=== PATIENT | female | born 1950 | race Caucasian/White ===

== ENCOUNTER → 2017-08-18 | Outpatient (CLI) | payer MEDICARE ==
[~2017-08-18] MED LIST: OMNIPAQUE 350 MG/ML, 100ML BOTTLE ONE
== END | disposition home or self-care (01) ==
LOC: CFH 11:11
PROVIDERS: ATTEND Physician Assistant Medical
DX: K86.2 Cyst of pancreas (principal); K85.10 Biliary acute pancreatitis without necrosis or infection; Z90.49 Acquired absence of other specified parts of digestive tract
CPT/HCPCS: 74178; 82565; Q9967

== ENCOUNTER → 2017-11-09 | Outpatient (CLI) | payer MEDICARE ==
[~2017-11-09] MED LIST changes: +CALCIUM PO; +LEVO50TA5 PO; -OMNIPAQUE 350 MG/ML, 100ML BOTTLE ONE; +PANT40TA5 PO; +SENN1TAB67 PO; +VITAMIN D PO
[2017-11-09 13:16] LABS: BASOPHILS # (AUTO) 0.05 x10^3/uL (0-0.1); BASOPHILS % (AUTO) 1 % (0-1); EOSINOPHILS # (AUTO) 0.23 x10^3/uL (0-0.4); EOSINOPHILS % (AUTO) 3 % (1-7); LYMPHOCYTES # (AUTO) 2.87 x10^3/uL (1-3.4); LYMPHOCYTES % (AUTO) 38 % (22-44); MD NO; MEAN CORPUSCULAR HEMOGLOBIN 30.8 pg (27.0-34.8); MEAN CORPUSCULAR HGB CONC 33.7 g/dL (32.4-35.8); MEAN CORPUSCULAR VOLUME 91.3 fL (80-100); MEAN PLATELET VOLUME 8.9 fL (7.4-10.4); MONOCYTES # (AUTO) 0.55 x10^3/uL (0.2-0.8); MONOCYTES % (AUTO) 7 % (2-9); NEUTROPHILS # (AUTO) 3.79 x10^3/uL (1.8-6.8); NEUTROPHILS % (AUTO) 51 % (42-75); PLATELET COUNT 323 x10^3/uL (130-400); RED BLOOD COUNT 4.63 x10^6/uL (3.82-5.3); RED CELL DISTRIBUTION WIDTH 13.9 % (9.6-15.2)
[2017-11-09 13:27] LABS: ANION GAP 7 mmol/L (5-15); CALCIUM 8.8 mg/dL (8.5-10.1); CHLORIDE 112 mmol/L (98-107)
[2017-11-09 13:29] LABS: CREATININE 0.71 mg/dL (0.55-1.02)
[2017-11-09 13:37] LABS: CULTURE INDICATED? YES; MICROSCOPIC INDICATED
== END | disposition home or self-care (01) ==
LOC: STAR 12:04
PROVIDERS: ATTEND Orthopaedic Surgery
DX: Z01.818 Encounter for other preprocedural examination (principal); M17.12 Unilateral primary osteoarthritis, left knee; R82.99 Other abnormal findings in urine
CPT/HCPCS: 36415; 80048; 81001; 85025; 87081; 87086; 87106; 87147; 93005

== ENCOUNTER 2017-11-13 06:00 | Inpatient (IN) | payer MEDICARE ==
[~2017-11-13] VITALS: Ht 154.9 cm; Wt 79.5 kg
[~2017-11-13 06:00] MED LIST changes: -SENN1TAB67 PO
[2017-11-13] MEDS ORDERED: LACTATED RINGERS 1,000 ML IV SCH (07:07)
[2017-11-13] MEDS ORDERED: SENN1TAB67 PO (07:19)
[2017-11-13] MEDS ORDERED: GABAPENTIN 300 MG CAPSULE PO ONE (08:00)
[2017-11-13] MEDS ORDERED: OXYcodone IR 5MG TABLET PO ONE (08:00)
[2017-11-13] MEDS ORDERED: LORazepam 2 MG/ML, 1ML IVPush ONE (08:00)
[2017-11-13] MEDS ORDERED: METOCLOPRAMIDE 5 MG/ML, 2ML IVPush ONE (08:00)
[2017-11-13] MEDS ORDERED: TRANEXAMIC ACID 100 MG/ML, 10ML ONE (08:52)
[2017-11-13] MEDS ORDERED: ROPIvacaine/PF 0.2%, 20 ML ONE (08:52)
[2017-11-13] MEDS ORDERED: KETOROLAC 60 MG/2 ML ONE (08:52)
[2017-11-13] MEDS ORDERED: SODIUM CHLORIDE 0.9% 100 ML ONE (08:52)
[2017-11-13] MEDS ORDERED: EPINEPHRINE 1 MG/ML, 1ML ONE (08:52)
[2017-11-13] MEDS ORDERED: BUPIVACAINE/PF 0.5% ONE (09:33)
[2017-11-13] MEDS ORDERED: CEFAZOLIN 1,000 MG ONE (09:33)
[2017-11-13] MEDS ORDERED: PROPOFOL 10 MG/ML, 20ML ONE (09:33)
[2017-11-13] MEDS ORDERED: ONDANSETRON 2MG/ML, 2ML ONE (09:33)
[2017-11-13] MEDS ORDERED: DEXAMETHASONE 4 MG/ML, 5ML ONE (09:33)
[2017-11-13] MEDS ORDERED: MIDAZOLAM 1 MG/ML, 2ML ONE (10:17)
[2017-11-13] MEDS ORDERED: FENTANYL PF 250 MCG/5ML ONE (10:17)
[2017-11-13] MEDS ORDERED: OXYcodone 5 MG/5 ML ORAL.SOL UDC PO PRN (10:30)
[2017-11-13] MEDS ORDERED: HYDROmorphone 1 MG/ML, 1ML IV PRN ×2 (10:30→11:30)
[2017-11-13] MEDS ORDERED: PROMETHAZINE 12.5 MG SUPP PR PRN ×2 (10:30→11:30)
[2017-11-13] MEDS ORDERED: ONDANSETRON 2MG/ML, 2ML IVPush PRN (10:30)
[2017-11-13] MEDS ORDERED: LABETALOL 5MG/ML, 20ML IV PRN (10:30)
[2017-11-13] MEDS ORDERED: FENTANYL PF 100 MCG/2ML ONE (10:58)
[2017-11-13] MEDS: FENTANYL PF 100 MCG/2ML IV PRN ×2 (11:10→11:25)
[2017-11-13] MEDS ORDERED: DIPHENHYDRAMINE 25 MG CAPSULE PO PRN (11:30)
[2017-11-13] MEDS: OXYcodone IR 5MG TABLET PO SCH ×3 (11:30→19:30)
[2017-11-13] MEDS ORDERED: PROMETHAZINE 25 MG/ML, 1ML IM PRN (11:30)
[2017-11-13] MEDS ORDERED: ALUMINUM/MAG/SIMETHICONE 30 ML UDC PO PRN (11:30)
[2017-11-13] MEDS ORDERED: ZOLPIDEM 5MG TABLET PO PRN (11:30)
[2017-11-13] MEDS ORDERED: HYDROcodone/APAP 10/325 MG TABLET PO PRN (11:30)
[2017-11-13] MEDS ORDERED: ONDANSETRON 4 MG TABLET PO PRN (11:30)
[2017-11-13] MEDS ORDERED: DIAZEPAM 5 MG TABLET PO PRN (11:30)
[2017-11-13] MEDS ORDERED: OXYcodone IR 5MG TABLET PO PRN (11:30)
[2017-11-13] MEDS ORDERED: SENNA/DOCUSATE TABLET PO PRN (11:30)
[2017-11-13] MEDS ORDERED: ONDANSETRON 2MG/ML, 2ML IV PRN (11:30)
[2017-11-13] MEDS ORDERED: MAGNESIUM HYDROXIDE 8%, 30ML UDC PO PRN (11:30)
[2017-11-13] MEDS ORDERED: BISACODYL 10 MG SUPP PR PRN (11:30)
[2017-11-13] MEDS ORDERED: KETOROLAC 30 MG/1 ML IV SCH (11:30)
[2017-11-13] MEDS ORDERED: TRANEXAMIC ACID 1,000 MG in SODIUM CHLORIDE 0.9% 100 ML IVPB ONE (11:45)
[2017-11-13] MEDS ORDERED: OXYcodone 5 MG/5 ML ORAL.SOL UDC ONE (11:57)
[2017-11-13] MEDS ORDERED: MEPERIDINE/PF 25MG/0.5ML ONE (12:15)
[2017-11-13] MEDS ORDERED: MEPERIDINE/PF 25MG/0.5ML IVPush PRN (12:30)
[2017-11-13 14:00] VITALS: BP 98/57
[2017-11-13] MEDS: D5%-0.45% NACL 1,000 ML IV SCH ×2 (14:00→17:51)
[2017-11-13] MEDS: ACETAMINOPHEN 650 MG/20.3 ML UDC PO SCH ×3 (14:00→23:30)
[2017-11-13] MEDS: CEFAZOLIN PMX 2GM/50ML 50 ML IVPB SCH (18:26)
[2017-11-13] MEDS: ASPIRIN 81 MG TABLET EC PO SCH (18:26)
[2017-11-13 18:42] VITALS: BP 114/68
[2017-11-13 20:36] VITALS: BP 114/68
[2017-11-13] MEDS: DOCUSATE 100 MG CAPSULE PO SCH (21:27)
[2017-11-14] MEDS: D5%-0.45% NACL 1,000 ML IV SCH ×4 (00:31→19:39)
[2017-11-14 00:35] VITALS: BP 105/61
[2017-11-14] MEDS: OXYcodone IR 5MG TABLET PO SCH ×7 (00:40→23:30)
[2017-11-14] MEDS: CEFAZOLIN PMX 2GM/50ML 50 ML IVPB SCH (00:43)
[2017-11-14 03:10] VITALS: BP 119/76
[2017-11-14] MEDS: ACETAMINOPHEN 650 MG/20.3 ML UDC PO SCH ×4 (05:28→23:45)
[2017-11-14] MEDS ORDERED: DEXAMETHASONE 4 MG/ML, 1ML IVPush SCH (06:00)
[2017-11-14] MEDS: LEVOTHYROXINE 50 MCG TABLET PO SCH (06:35)
[2017-11-14] MEDS: ASPIRIN 81 MG TABLET EC PO SCH ×2 (06:37→17:16)
[2017-11-14] MEDS: MULTIVITAMINS/MINERALS TABLET PO SCH (07:44)
[2017-11-14] MEDS: PANTOPROZOLE 40MG TABLET PO SCH (07:45)
[2017-11-14] MEDS: DOCUSATE 100 MG CAPSULE PO SCH ×2 (07:45→19:39)
[2017-11-14 08:04] VITALS: BP 116/54
[2017-11-14] MEDS: TAMSULOSIN 0.4 MG CAP.ER.24H PO SCH (11:34)
[2017-11-14] MEDS: KETOROLAC 30 MG/1 ML IV SCH ×3 (11:36→23:44)
[2017-11-14 13:33] VITALS: BP 93/61
[2017-11-14 19:40] VITALS: BP 97/63
[2017-11-15] MEDS: D5%-0.45% NACL 1,000 ML IV SCH ×2 (01:44→08:48)
[2017-11-15 01:46] VITALS: BP 96/64
[2017-11-15] MEDS: OXYcodone IR 5MG TABLET PO SCH ×3 (02:22→11:17)
[2017-11-15] MEDS: KETOROLAC 30 MG/1 ML IV SCH ×2 (05:58→11:17)
[2017-11-15] MEDS: ACETAMINOPHEN 650 MG/20.3 ML UDC PO SCH ×2 (05:58→11:17)
[2017-11-15] MEDS: ASPIRIN 81 MG TABLET EC PO SCH (05:58)
[2017-11-15] MEDS: LEVOTHYROXINE 50 MCG TABLET PO SCH (05:58)
[2017-11-15 07:16] VITALS: BP 100/50
[2017-11-15] MEDS: MULTIVITAMINS/MINERALS TABLET PO SCH (07:54)
[2017-11-15] MEDS: TAMSULOSIN 0.4 MG CAP.ER.24H PO SCH (07:54)
[2017-11-15] MEDS: DOCUSATE 100 MG CAPSULE PO SCH (09:21)
[2017-11-15] MEDS: PANTOPROZOLE 40MG TABLET PO SCH (09:21)
[2017-11-15 11:00] VITALS: BP 98/62
== END 2017-11-15 11:30 | disposition home or self-care (01) | DRG 470 ==
LOC: OUT 06:00 → 4NOR 11:11 → DCLOUNGE 11-15 11:23
PROVIDERS: ADMIT Orthopaedic Surgery; ATTEND Orthopaedic Surgery
PROC: 0SRD0J9 Replacement of Left Knee Joint with Synthetic Substitute, Cemented, Open Approach (ICD-10-PCS; principal; 2017-11-13 09:15)
DX: M17.12 Unilateral primary osteoarthritis, left knee (principal); E03.9 Hypothyroidism, unspecified; K21.9 Gastro-esophageal reflux disease without esophagitis; Z60.2 Problems related to living alone; R53.81 Other malaise; Z88.0 Allergy status to penicillin
CPT/HCPCS: 36415; 85014; 85018; C1713; J0171; J0690; J1100; J1885; J2175; J2250; J2405; J2704; J2795; J3010; J3490; C1776; J2060; J2765; J7120

== ENCOUNTER → 2017-12-26 | Outpatient (CLI) | payer MEDICARE ==
[~2017-12-26] MED LIST changes: +OMNIPAQUE 350 MG/ML, 100ML BOTTLE ONE; +SENN1TAB67 PO
== END | disposition home or self-care (01) ==
LOC: CFH 08:35
PROVIDERS: ATTEND Physician Assistant Medical
DX: K86.3 Pseudocyst of pancreas (principal)
CPT/HCPCS: 74170; 82565; Q9967